=== PATIENT | male | born 1980 | race Caucasian/White ===

== ENCOUNTER 2017-07-25 21:44 | Emergency (ER) | payer MEDICAID, OTHER ==
[~2017-07-25] VITALS: Ht 182.9 cm; Wt 85.9 kg
[~2017-07-25 21:44] MED LIST: HYDR-569 PO; IBUP-1986 PO; METH-360 PO; OMEP-84 PO; VAL5T PO
[2017-07-25] MEDS ORDERED: FLUO10CA28 PO (22:04)
[2017-07-25 22:28] LABS: BASOPHILS % (AUTO) 0.4 % (0-1); EOSINOPHILS # (AUTO) 0.3 X10'3 (0-0.9); HEMATOCRIT 40.5 % (42.0-52.0); HEMOGLOBIN 14.1 g/dl (14.0-17.9); LYMPHOCYTES # (AUTO) 2.2 X10'3 (1.1-4.8); LYMPHOCYTES % (AUTO) 30.3 % (21-51); MEAN CORPUSCULAR HEMOGLOBIN 31.7 PG (27.0-31.0); MEAN CORPUSCULAR HGB CONC 34.9 % (33.0-36.5); MEAN CORPUSCULAR VOLUME 90.8 FL (78-98); MEAN PLATELET VOLUME 7.3 FL (7.4-10.4); MONOCYTES # (AUTO) 0.4 X10'3 (0-0.9); MONOCYTES % (AUTO) 4.8 % (2-12); NEUTROPHILS # (AUTO) 4.4 X10'3 (1.8-7.7); NEUTROPHILS % (AUTO) 60.5 % (42-75); PLATELET COUNT 264 X10'3 (140-440); RED BLOOD COUNT 4.46 X10'6 (4.70-6.10); RED CELL DISTRIBUTION WIDTH 12.8 % (11.5-14.5); WHITE BLOOD COUNT 7.3 X10'3 (4.5-11.0)
[2017-07-25 22:39] LABS: PROTHROMBIN TIME 9.9 SECONDS (9.0-12.0)
[2017-07-25 22:51] LABS: ALANINE AMINOTRANSFERASE 105 U/L (12-78); ALBUMIN 4.4 G/DL (3.4-5.0); ALBUMIN/GLOBULIN RATIO 1.2 (1.1-1.5); ALKALINE PHOSPHATASE 105 IU/L (46-116); ANION GAP 11 (8-16); ASPARTATE AMINO TRANSFERASE 47 U/L (10-37); BILIRUBIN,TOTAL 0.3 MG/DL (0.1-1.0); BLOOD UREA NITROGEN 17 MG/DL (7-18); BUN/CREATININE RATIO 14.7 (5.4-32.0); CALCIUM 9.7 MG/DL (8.5-10.1); CHLORIDE 102 MMOL/L (99-107); CREATININE 1.16 MG/DL (0.60-1.10); GLUCOSE 88 MG/DL (70-104); POTASSIUM 3.9 MMOL/L (3.5-5.1); SODIUM 140 MMOL/L (135-145); TOTAL CARBON DIOXIDE 26.6 MMOL/L (24-32); TOTAL PROTEIN 8.2 G/DL (6.4-8.2); eGFR 72 ML/MIN
[2017-07-25 23:11] LABS: CLARITY,URINE CLEAR (Clear); COLOR,URINE YELLOW (Yellow); GLUCOSE, URINE NEGATIVE (Neg); KETONES,URINE NEGATIVE (Neg); LEUKOCYTE ESTERASE ,URINE NEGATIVE (Neg); NITRITES, URINE NEGATIVE (Neg); OCCULT BLOOD,URINE NEGATIVE (Neg); PH,URINE 6.5 (4.8-8.0); PROTEIN,URINE NEGATIVE (Neg); UROBILINOGEN,URINE 0.2 E.U/dL (0.2-1.0)
[2017-07-25 23:12] LABS: UA COLLECTION TYPE CLN CATCH MIDSTREAM
[2017-07-25] MEDS ORDERED: ketorolac trometh. 30mg/ml inj. IV ONE (23:35)
[2017-07-26] MEDS ORDERED: IBUP-1984 PO (02:39)
[2017-07-26] MEDS ORDERED: CefTRIAXone 250MG IM Kit w/LIDOcaine IM ONE (02:40)
[2017-07-26] MEDS ORDERED: azithromycin 250mg tablet PO ONE (02:40)
[2017-07-26 03:01] VITALS: BP 144/93
== END 2017-07-26 03:02 | disposition home or self-care (01) ==
LOC: ER 21:46
DX: N45.1 Epididymitis (principal); J45.909 Unspecified asthma, uncomplicated; G89.29 Other chronic pain; F12.10 Cannabis abuse, uncomplicated; Z79.899 Other long term (current) drug therapy; Z87.442 Personal history of urinary calculi
CPT/HCPCS: 36415; 76870; 80053; 81003; 83605; 84145; 85025; 85610; 87040; 96372; 96374; 99285; J0696; J1885; J7030

== ENCOUNTER 2017-11-18 13:23 | Emergency (ER) | payer MEDICAID, OTHER ==
[~2017-11-18] VITALS: Ht 653.8 cm; Wt 86.5 kg
[~2017-11-18 13:23] MED LIST changes: +FLUO10CA28 PO; -HYDR-569 PO; -IBUP-1986 PO; -METH-360 PO; -OMEP-84 PO; -VAL5T PO
[2017-11-18] MEDS ORDERED: LIDOcaine Viscous 15ml cup MM PRN (15:15)
[2017-11-18] MEDS ORDERED: mag hydrox/Alum hydrox/simeth 30ml oral suspension PO ONE (15:15)
[2017-11-18] MEDS ORDERED: sucralfate 1gm/10ml UD suspension PO SCH (15:15)
[2017-11-18 15:34] VITALS: BP 152/100
== END 2017-11-18 15:35 | disposition home or self-care (01) ==
LOC: ER 13:24
DX: T62.8X1A Toxic effect of other specified noxious substances eaten as food, accidental (unintentional), initial encounter (principal); K29.00 Acute gastritis without bleeding; J02.9 Acute pharyngitis, unspecified; J45.909 Unspecified asthma, uncomplicated; G89.29 Other chronic pain; F12.90 Cannabis use, unspecified, uncomplicated; Y92.9 Unspecified place or not applicable
CPT/HCPCS: 99283

== ENCOUNTER 2018-08-11 00:41 | Emergency (ER) | payer MEDICAID, OTHER ==
[~2018-08-11] VITALS: Ht 182.9 cm; Wt 79.5 kg
[2018-08-11] MEDS ORDERED: diphenhydrAMINE 50 mg/ml inj IV ONE (01:50)
[2018-08-11] MEDS ORDERED: proCHLORperazine 10 MG/2 ml inj IV ONE (01:50)
[2018-08-11] MEDS ORDERED: LORazepam 2 mg/ml vial IV ONE (01:50)
[2018-08-11] MEDS ORDERED: normal saline 1000ML IV soln IVB ONE (01:55)
[2018-08-11] MEDS ORDERED: ketorolac trometh. 30mg/ml inj. IV ONE (03:10)
[2018-08-11 03:14] VITALS: BP 122/67
== END 2018-08-11 03:09 | disposition home or self-care (01) ==
LOC: ER 00:42
DX: G43.909 Migraine, unspecified, not intractable, without status migrainosus (principal); R11.2 Nausea with vomiting, unspecified; J45.909 Unspecified asthma, uncomplicated; G89.29 Other chronic pain; F12.90 Cannabis use, unspecified, uncomplicated; Z79.899 Other long term (current) drug therapy
CPT/HCPCS: 70450; 96361; 96374; 96375; 99284; J0780; J1200; J1885; J2060; J7030

== ENCOUNTER 2022-07-09 02:30 | Emergency (ER) | payer OTHER ==
[~2022-07-09] VITALS: Ht 185.4 cm; Wt 79.5 kg
[2022-07-09 02:34] VITALS: BP 159/87
== END 2022-07-09 04:36 | disposition left against medical advice (07) ==
LOC: ER 02:31
DX: R10.9 Unspecified abdominal pain (principal); Z53.21 Procedure and treatment not carried out due to patient leaving prior to being seen by health care provider
CPT/HCPCS: 99281

== ENCOUNTER 2023-07-06 15:51 | Emergency (ER) | payer BC ==
[~2023-07-06] VITALS: Ht 182.9 cm; Wt 77.0 kg
[2023-07-06 15:57] VITALS: BP 134/93; PULSE 72; TEMP 98; O2SAT 99
[2023-07-06 16:21] LABS: BILIRUBIN,URINE NEGATIVE (Neg); CLARITY,URINE CLOUDY (Clear); COLOR,URINE YELLOW (Yellow); GLUCOSE, URINE NEGATIVE (Neg); KETONES,URINE NEGATIVE (Neg); LEUKOCYTE ESTERASE ,URINE NEGATIVE (Neg); NITRITES, URINE NEGATIVE (Neg); OCCULT BLOOD,URINE LARGE (Neg); PH,URINE 6.5 (4.8-8.0); PROTEIN,URINE NEGATIVE (Neg); UROBILINOGEN,URINE 0.2 E.U/dL (0.2-1.0)
[2023-07-06 16:28] LABS: UA COLLECTION TYPE CLN CATCH MIDSTREAM
[2023-07-06 16:31] LABS: WBC,URINE NONE SEEN /HPF (0-4)
[2023-07-06 16:32] LABS: BACTERIA,URINE NONE SEEN /HPF (Neg); MUCUS STRANDS FEW /LPF (Neg); RBC,URINE 50-100 /HPF (0-2); SQUAMOUS EPITHELIAL CELL,UR FEW /LPF (FEW)
[2023-07-06 16:47] LABS: BASOPHILS # (AUTO) 0.1 X10'3 (0-0.2); BASOPHILS % (AUTO) 1.1 % (0-1); EOSINOPHILS # (AUTO) 0.4 X10'3 (0-0.9); EOSINOPHILS % (AUTO) 5.1 % (0-6); HEMATOCRIT 40.6 % (42.0-52.0); HEMOGLOBIN 13.7 g/dl (14.0-17.9); LYMPHOCYTES # (AUTO) 1.6 X10'3 (1.1-4.8); MEAN CORPUSCULAR HEMOGLOBIN 30.6 PG (27.0-31.0); MEAN CORPUSCULAR HGB CONC 33.8 g/dL (33.0-36.5); MEAN CORPUSCULAR VOLUME 90.7 FL (78-98); MEAN PLATELET VOLUME 7.7 FL (7.4-10.4); MONOCYTES # (AUTO) 0.5 X10'3 (0-0.9); MONOCYTES % (AUTO) 5.8 % (2-12); NEUTROPHILS # (AUTO) 5.2 X10'3 (1.8-7.7); PLATELET COUNT 247 X10'3 (140-440); RED BLOOD COUNT 4.48 X10'6 (4.70-6.10); RED CELL DISTRIBUTION WIDTH 12.7 % (11.5-14.5); WHITE BLOOD COUNT 7.8 X10'3 (4.5-11.0)
[2023-07-06] MEDS: ketorolac trometh inj. 60 MG/2 ML VIAL IM ONE (16:50)
[2023-07-06 16:58] LABS: ALBUMIN 4.3 G/DL (3.4-5.0); ANION GAP 8 (8-16); BLOOD UREA NITROGEN 13 MG/DL (7-18); BUN/CREATININE RATIO 12.4 (10.0-20.0); CALCIUM 8.6 MG/DL (8.5-10.1); CHLORIDE 103 MMOL/L (99-107); CREATININE 1.05 MG/DL (0.60-1.10); GLUCOSE 98 MG/DL (70-104); LIPASE 48 U/L (16-77); POTASSIUM 3.9 MMOL/L (3.5-5.1); SODIUM 142 MMOL/L (135-145); TOTAL CARBON DIOXIDE 31.1 MMOL/L (24-32); eCRCL 101 ML/MIN; eGFR 78 ML/MIN
[2023-07-06 17:33] LABS: ALANINE AMINOTRANSFERASE 25 U/L (12-78); ALBUMIN/GLOBULIN RATIO 1.3 (1.1-1.5); ALKALINE PHOSPHATASE 98 IU/L (46-116); ASPARTATE AMINO TRANSFERASE 17 U/L (10-37); BILIRUBIN,DIRECT 0.1 MG/DL (0-0.3); BILIRUBIN,TOTAL 0.3 MG/DL (0.1-1.0); TOTAL PROTEIN 7.5 G/DL (6.4-8.2)
[2023-07-06] MEDS: ondansetron 4mg rapidly disintigrating tab PO ONE (17:37)
[2023-07-06] MEDS: dicyclomine 10 MG capsule PO ONE (17:38)
[2023-07-06 18:31] VITALS: RESP 18
== END 2023-07-06 18:35 | disposition home or self-care (01) ==
LOC: ER 15:52
DX: K57.90 Diverticulosis of intestine, part unspecified, without perforation or abscess without bleeding (principal); N20.0 Calculus of kidney; J45.909 Unspecified asthma, uncomplicated; F32.A Depression, unspecified; F41.9 Anxiety disorder, unspecified; F12.90 Cannabis use, unspecified, uncomplicated; Z72.89 Other problems related to lifestyle; Z79.899 Other long term (current) drug therapy
CPT/HCPCS: 36415; 74176; 80048; 80076; 81001; 83690; 85025; 99284